=== PATIENT | female | born 1960 | race Caucasian/White ===

== ENCOUNTER 2017-10-04 07:02 | Emergency (ER) | payer SELFPAY ==
[2017-10-04] MEDS ORDERED: Sodium Chloride 0.9% 1,000 ML IV ONE ×2 (07:34→09:10)
[2017-10-04] MEDS ORDERED: Sodium Chloride 0.9% 1,000 ML ONE ×2 (07:57→09:16)
[2017-10-04 07:59] LABS: BASO % 0.3 % (0.0-2.0); HEMOGLOBIN 12.2 g/dL (11.0-16.0); LYMPH # 1.2 K/uL (1.0-4.3); LYMPH % 12.5 % (20.0-40.0); MEAN CELL VOLUME 87.7 fL (81.0-99.0); MEAN CORPUSCULAR HEMOGLOBIN 29.8 pg (27.0-31.0); MEAN PLATELET VOLUME 7.2 fL (7.2-11.7); MONO # 0.3 K/uL (0.0-0.8); MONO % 3.3 % (0.0-10.0); NEUT # 7.9 K/uL (1.8-7.0); NEUT % 83.9 % (50.0-75.0); RBC 4.09 Mil/uL (3.80-5.20); RED CELL DISTRIBUTION WIDTH 13.4 % (11.5-14.5); WHITE BLOOD COUNT 9.5 K/uL (4.8-10.8)
[2017-10-04 08:07] LABS: ALB/GLOB RATIO 1.1 (1.0-2.1); ALT/SGPT 40 U/L (9-52); AST/SGOT 51 U/L (14-36); BLOOD UREA NITROGEN 8 mg/dL (7-17); CALCIUM 8.1 mg/dl (8.6-10.4); GFR AFRICAN-AMERICAN > 60; GFR NON-AFRICAN AMERICAN > 60
[2017-10-04 08:09] LABS: SQUAMOUS EPITHIAL < 1 /hpf (0-5); URINE BILIRUBIN NEGATIVE (NEGATIVE); URINE BLOOD 2+ (NEGATIVE); URINE CLARITY Clear (Clear); URINE COLOR Yellow (YELLOW); URINE GLUCOSE (UA) NORMAL (Normal); URINE LEUKOCYTE ESTERASE NEG Leu/uL (Negative); URINE PROTEIN NEGATIVE (NEGATIVE); URINE UROBILINOGEN NORMAL mg/dL (0.2-1.0)
--- NOTE | 2017-10-04 08:27 | C.PDOC ---
History Of Present Illness 56 year old female presents to ED for evaluation of fever, throat pain, productive cough associated with white phlegm for the last 3 days. Patient states she had high fever today associated with headache, body aches, and shortness of breath when coughing. Denies chest pain, neck pain, dizziness, or any other associated symptoms at this time. Time Seen by Provider: 10/04/17 07:19 Chief Complaint (Nursing): Flu-like Symptoms History Per: Patient History/Exam Limitations: no limitations Onset/Duration Of Symptoms: Days (3) Current Symptoms Are (Timing): Still Present Location Of Pain: Throat, Diffuse Myalgias, Headache Sick Contacts (Context): None Associated Symptoms: Fever, Sore Throat, Cough, Sputum, Myalgias. denies: Neck Pain, Nausea, Vomiting, Diarrhea Ear Symptoms: Bilateral: None Recent travel outside of the [place]: No Additional History Per: Patient Past Medical History Reviewed: Historical Data, Nursing Documentation, Vital Signs Vital Signs: Last Vital Signs Temp 100.2 F H 10/04/17 09:03 Pulse 102 H 10/04/17 09:03 Resp 17 10/04/17 09:03 BP 137/77 10/04/17 09:03 Pulse Ox 96 10/04/17 10:09 Family History: States: Unknown Family Hx - Social History Hx Alcohol Use: Yes Hx Substance Use: No - Immunization History Hx Tetanus Toxoid Vaccination: No Hx Influenza Vaccination: No Hx Pneumococcal Vaccination: No Review Of Systems Except As Marked, All Systems Reviewed And Found Negative. Constitutional: Positive for: Fever, Other (body aches) ENT: Positive for: Throat Pain. Negative for: Ear Pain Cardiovascular: Negative for: Chest Pain Respiratory: Positive for: Cough, Shortness of Breath, Sputum Gastrointestinal: Negative for: Nausea, Vomiting, Abdominal Pain Musculoskeletal: Negative for: Neck Pain, Back Pain Neurological: Positive for: Headache. Negative for: Dizziness Physical Exam - Physical Exam Appears: Non-toxic, No Acute Distress Skin: Normal Color, Warm, Dry Head: Atraumatic, Normacephalic Eye(s): bilateral: Normal Inspection Ear(s): Bilateral: Normal Nose: Normal Oral Mucosa: Moist Throat: Normal, No Erythema, No Exudate, No Drooling Neck: Normal ROM, Supple Chest: Symmetrical Cardiovascular: Rhythm Regular (tachycardic) Respiratory: No Rales, Rhonchi (scattered), No Wheezing, Other (active coughing) Gastrointestinal/Abdominal: Soft, No Tenderness Extremity: Normal ROM Neurological/Psych: Oriented x3, Normal Speech ED Course And Treatment - Laboratory Results Result Diagrams: 10/04/17 07:52 10/04/17 07:52 O2 Sat by Pulse Oximetry: 96 (RA) Pulse Ox Interpretation: Normal Medical Decision Making Medical Decision Making: Plan: * Blood work * Urinalysis * CXR * Influenza AB * Tylenol, IV fluids Progress: Labs reviewed with no acute findings. Flu was negative CXR shows increased coarse interstitial markings; rule out sequela of reactive/ inflammatory airway disease or viral illness. Small rounded nodular density in the right upper lung field located between the right posterior 5th and 6th ribs that could represent vessel on end artifact however small parenchymal nodule not excluded. Follow-up CT scan of the chest recommended for further evaluation. Patient re-evaluated she states feeling little dizzy and tired. Meclizine and additional fluids ordered [address] Hayes to discuss the case including CXR findings. He agrees the patient can follow up outpatient and he will review the xray and CT. On second re-eval, Disposition Counseled Patient/Family Regarding: Diagnosis, Need For Followup - Disposition Referrals: Blue Hayes MD [Staff Provider] - Disposition: HOME/ ROUTINE Disposition Time: 10:08 Condition: IMPROVED Additional Instructions: Take Tylenol or Motrin alternating every 4-6 hours for Fever 100.4F or higher. Rest and drink plenty of fluids to prevent dehydration. Follow up with your primary medical doctor. Take medications as prescribed. Return to the emergency department at any time if symptoms persist or worsen. Prescriptions: Ibuprofen [Motrin] 600 mg PO Q8 #30 tab Promethazine DM [Phenergan DM Syrup] 10 ml PO Q8 PRN #300 ml PRN Reason: Cough Instructions: Viral Syndrome (DC) Forms: [facility] (Mauritian) - POA Present On Arrival: None - Clinical Impression Clinical Impression: Influenza-like illness - PA / [employer] / Resident Statement MD/DO has reviewed & agrees with the documentation as recorded. - Scribe Statement The provider has reviewed the documentation as recorded by the Scribe Riri Wong All medical record entries made by the Scribe were at my direction and personally dictated by me. I have reviewed the chart and agree that the record accurately reflects my personal performance of the history, physical exam, medical decision making, and the department course for this patient. I have also personally directed, reviewed, and agree with the discharge instructions and disposition.
[2017-10-04 09:04] VITALS: BP 137/77; PULSE 102; RESP 17; TEMP 100.2
--- NOTE | 2017-10-04 09:20 | RAD ---
HISTORY: SOB COMPARISON: No prior. TECHNIQUE: Chest PA and lateral FINDINGS: LUNGS: The interstitial markings are increased and coarsened with a few scattered peribronchial cuffing changes. Rule out sequela of reactive/inflammatory airway disease or viral illness. . There is a small rounded nodular density in the right upper lung field located between the right posterior 5th and 6th ribs that could represent vessel on end artifact however small parenchymal nodule not excluded. Follow-up CT scan of the chest recommended for further evaluation. . PLEURA: No significant pleural effusion identified. No pneumothorax apparent. CARDIOVASCULAR: Normal. OSSEOUS STRUCTURES: Minor multilevel degenerative spondylosis of the thoracic spine. VISUALIZED UPPER ABDOMEN: Normal. OTHER FINDINGS: None. IMPRESSION: Increased coarse interstitial markings; rule out sequela of reactive/inflammatory airway disease or viral illness. small rounded nodular density in the right upper lung field located between the right posterior 5th and 6th ribs that could represent vessel on end artifact however small parenchymal nodule not excluded. Follow-up CT scan of the chest recommended for further evaluation. . . Note this report was placed in PA review folder for followup
[2017-10-04 09:30] VITALS: O2SAT 96
== END 2017-10-04 10:40 | disposition home or self-care (01) ==
LOC: C.ER 07:02
DX: J11.1 Influenza due to unidentified influenza virus with other respiratory manifestations (principal)
CPT/HCPCS: 71046; 80053; 81001; 85025; 87086; 87804; 96360; 96361; 99284; J7040